=== PATIENT | male | born 1995 | race American Indian/Alaskan Native ===

== ENCOUNTER 2021-09-23 17:46 | Emergency (ER) | payer SELFPAY ==
[2021-09-23] MEDS ORDERED: NEOMY 3.5 MG/BACIT 400 UNITS/POLY B 5000 UNITS/GM OINT PACKET TP ONE (18:36)
[2021-09-23] MEDS ORDERED: TETANUS,DIPH,PERTUSS(ACELL) VACCINE 0.5 ML SYRINGE IM ONE (18:36)
[2021-09-23] MEDS ORDERED: IBUPROFEN 400 MG TAB PO ONE (18:36)
--- NOTE | 2021-09-23 19:05 | XRay Report ---
XR finger(s) 2+V LT INDICATION: left index finger slammed in door. COMPARISON: No relevant prior imaging study available. FINDINGS: There is a comminuted fracture through the distal portion of the index finger distal phalanx. No additional fractures are seen. There is soft tissue swelling adjacent to the fracture. IMPRESSION: 1. Index finger distal phalanx fracture. Signer Name: Russ Perry MD Signed: 09/23/2021 7:01 PM Workstation Name: [id number]
--- NOTE | 2021-09-23 19:28 | Emergency Department Report ---
ED Upper Extremity Inj HPI - General Chief Complaint: Extremity Injury, Upper Stated Complaint: INDEX FINGER LFT HAND INJURY Time Seen by Provider: 09/23/21 18:28 Source: patient Mode of arrival: Ambulatory Limitations: No Limitations - History of Present Illness Initial Comments: Patient is a 25-year-old male presents emergency room complaints of a left index finger injury that occurred just prior to arrival. Patient states that he was leaving the house when he accidentally shut his finger in a wooden door. He states he began having bruising and swelling to the finger. He states he had some mild bleeding but it resolved. He states his last tetanus immunization has been greater than 5 years. He states he is still able to move the finger and denies any numbness or weakness. patient denies any past medical history. He denies any medication allergies - Related Data Previous Rx's Medication Instructions Recorded Last Taken Type Naproxen 375 mg PO BID PRN #14 tab 09/23/21 Unknown Rx Neomycin/Bacitracin/Polymyxinb 1 applicatio TP BID #14 g 09/23/21 Unknown Rx [Triple Antibiotic Ointment] Allergies Allergy/AdvReac Type Severity Reaction Status Date / Time No Known Allergies Allergy Unverified 09/23/21 19:14 ED Review of Systems ROS: Stated complaint: INDEX FINGER LFT HAND INJURY Other details as noted in HPI Comment: All other systems reviewed and negative ED Past Medical Hx - Medications Home Medications: Home Medications Medication Instructions Recorded Confirmed Last Taken Type Naproxen 375 mg PO BID PRN #14 tab 09/23/21 Unknown Rx Neomycin/Bacitracin/Polymyxinb 1 applicatio TP BID #14 g 09/23/21 Unknown Rx [Triple Antibiotic Ointment] ED Physical Exam - General Limitations: No Limitations General appearance: alert, in no apparent distress - Head Head exam: Present: atraumatic, normocephalic - Eye Eye exam: Present: normal appearance - ENT ENT exam: Present: mucous membranes moist - Extremities Exam Extremities exam: Present: other (ttp to the distal left index finger, there is a subungal hematoma, there is a skin tear present just superior to the nail bed, nail bed is intact, there is ecchymosis present to the finger, no lacerations, no bleeding, FROM, neurovascularly intact ) - Neurological Exam Neurological exam: Present: alert, oriented X3 - Psychiatric Psychiatric exam: Present: normal affect, normal mood - Skin Skin exam: Present: warm, dry ED Course Vital Signs 09/23/21 20:17 Respiratory 16 Rate ED Medical Decision Making - Radiology Data Radiology results: report reviewed Ordering Physician: WEN ROMERO Date of Service: 09/23/21 Procedure(s): XR finger(s) 2+V LT Accession Number(s): [id number] cc: WEN ROMERO Fluoro Time In Minutes: XR finger(s) 2+V LT INDICATION: left index finger slammed in door. COMPARISON: No relevant prior imaging study available. FINDINGS: There is a comminuted fracture through the distal portion of the index finger distal phalanx. No additional fractures are seen. There is soft tissue swelling adjacent to the fracture. IMPRESSION: 1. Index finger distal phalanx fracture. Signer Name: Russ Perry MD Signed: 09/23/2021 7:01 PM Workstation Name: [id number] Transcribed By: CIARAN Dictated By: Russ Perry MD Electronically Authenticated By: Russ Perry MD Signed Date/Time: 09/23/211900 DD/ 99 TD/TT: - Medical Decision Making Patient is a 25-year-old male presents emergency room complaints of a left index finger injury that occurred just prior to arrival. Patient states that he was leaving the house when he accidentally shut his finger in a wooden door. He states he began having bruising and swelling to the finger. He states he had some mild bleeding but it resolved. He states his last tetanus immunization has been greater than 5 years. He states he is still able to move the finger and denies any numbness or weakness. patient denies any past medical history. He denies any medication allergies. On exam:ttp to the distal left index finger, there is a subungal hematoma, there is a skin tear present just superior to the nail bed, nail bed is intact, there is ecchymosis present to the finger, no lacerations, no bleeding, FROM, neurovascularly intact. X-ray left finger 1. Index finger distal phalanx fracture. Discussed all findings with patient. Patient given tetanus immunization. Wound care performed by purchasing administrative assistant. Finger splint placed by tech and patient remained neurovascularly intact. Patient has no signs of open fracture. Advised patient Please use medication as prescribed. Please keep area clean, dry, covered. Wash with antibacterial soap and water and pat dry. Please follow-up with orthopedic doctor. Return to emergency room for any new or worsening symptoms. Critical care attestation.: If time is entered above; I have spent that time in minutes in the direct care of this critically ill patient, excluding procedure time. ED Disposition Clinical Impression: Skin tear, Subungual hematoma Finger fracture Qualifiers: Encounter type: initial encounter Finger: index finger Fracture type: closed Phalanx: distal Fracture alignment: nondisplaced Laterality: left Qualified Code(s): S62.661A - Nondisplaced fracture of distal phalanx of left index finger, initial encounter for closed fracture Disposition: HOME / SELF CARE / HOMELESS Is pt being admited?: No Does the pt Need Aspirin: No Condition: Stable Instructions: Skin Tear, [id number], Finger Fracture, Adult Additional Instructions: Please use medication as prescribed. Please keep area clean, dry, covered. Wash with antibacterial soap and water and pat dry. Please follow-up with orthopedic doctor. Return to emergency room for any new or worsening symptoms. Prescriptions: Naproxen 375 mg PO BID PRN #14 tab PRN Reason: pain Neomycin/Bacitracin/Polymyxinb [Triple Antibiotic Ointment] 1 applicatio TP BID #14 g Referrals: PEEWEE CASANOVA MD [Staff Physician] - 3-5 Days Time of Disposition: 19:27 Print Language: DANISH
== END 2021-09-23 20:31 | disposition home or self-care (01) ==
LOC: ED 17:46
DX: S62.631A Displaced fracture of distal phalanx of left index finger, initial encounter for closed fracture (principal); Z79.899 Other long term (current) drug therapy; W22.8XXA Striking against or struck by other objects, initial encounter; Y93.89 Activity, other specified; Y92.89 Other specified places as the place of occurrence of the external cause; Y99.8 Other external cause status
CPT/HCPCS: 90471; 90715; 99283